=== PATIENT | female | born 1980 | race Caucasian/White ===

== ENCOUNTER 2022-10-17 14:31 | Emergency (ER) | payer BC, SELFPAY ==
[2022-10-17] VITALS (23 sets, daily range): BP systolic 86–110; BP diastolic 51–68; PULSE 59–78; RESP 12–19; TEMP 36.5; O2SAT 99–100
--- NOTE | 2022-10-17 14:53 | W.ED.GENAD ---
Discharge Plan Disposition Patient Disposition: Home Condition: Stable Discharge Details Clinical Impression: Blunt chest trauma, Rib contusion, Blunt trauma of multiple sites of trunk, Blunt head trauma Primary Care Provider: Unknown,Unknown ED Provider: Fabrizio Garrison Home Meds and New Rx's Prescriptions: Continued fluoxetine 10 mg Tablet 10 mg PO 1XD multivitamin Tablet 1 tab PO 1XD Discharge Instructions Instructions: Rib Contusion (ED) Additional Instructions: Your pictures did not show concerning findings for trauma related reasons. You did have an area of inflammation in the right middle lung. When you follow up with your primary care provider you should make them aware of this as you may need a follow up xray or cat scan in a few months if you feel more ill, have severe worsening pain or difficulty breathing return to the emergency department Medical Decision Making 42 yo female with no chronic medical problems comes in with her with left sided chest and abdomen pain s/p fall. Patient was walking outside when she tripped on a stick and landed on her left side on a rock. She denies loc but has felt dizzy since falling. She localizes the pain to the mid axillary line over the 5-7 ribs and has no crepitus. She is caox4, moving all extremities. E[place]lier she complained of left shoulder pain but has none now and no tenderness with full rom of the shoulder. She has tenderness in the luq without guarding, is noted to be hypotensive with bp 86/51 but no tachycardia. Given location of pain and her dizziness will proceed with ct head/cspine, chest/abd/pelvis. labs unremarkable, imaging also without acute findings though does have infiltrates on the right side but denies any cough or fevers and no smoking history, likely incidental finding that she was informed of and will need f/u imaging. She has no pain elsewhere, beer still runner compounder in the left lateral chest but give no fractures or ptx and no acute findings in the abdomen/pelvis and she's ambulating without assistance with normal gait do not feel she requires hospitalization, she will f/u with pcp and return precautions given Differential Diagnosis Differential Diagnosis: splenic injury, rib fracture, tbi Imaging Data Radiologic Study: Attestation: I personally reviewed and interpreted this imaging study as follows: Imaging: CT Scan Radiologist's impression: no acute findings head/c spine Radiologic Study #2: Attestation: I personally reviewed and interpreted this imaging study as follows: Imaging: CT Scan Radiologist's impression: IMPRESSION: 1. There is an area of infiltrate in the medial segment of the right middle lobe as described above.? No other pulmonary findings.? No pleural effusions.? No pneumothorax.? No fractures evident. 2. No significant trauma sequelae in the abdomen and pelvis. 3. No fractures evident Lab Data Lab results reviewed: Yes I reviewed the patient's lab results. HPI General Mode of arrival: wheelchair. Date/Time Provider Initiated Documentation: 10/17/22 14:43. Information obtained by: patient and family. History of Present Illness 42 year old F presents to the emergency department with the chief complaint of left sided chest and abdominal pain s/p fall, described as moderate, Patient started experiencing this minute(s) (30) and it has been constant. No relieving factors improve symptom(s), No exacerbating factors reported . Patient notes denies fever/chills and shortness of breath. Patient did receive the following treatments prior to arrival, none Related Data Home Medications Medication Instructions Recorded Confirmed fluoxetine 10 mg tablet 10 mg PO 1XD 10/17/22 10/17/22 multivitamin 1 tab PO 1XD 10/17/22 10/17/22 Allergies Allergy/AdvReac Type Severity Reaction Status Date / Time morphine Allergy Intermediate Itching Unverified 10/17/22 15:43 General Stated Complaint: Chest/Rib ITA: 3 Review of Systems All systems reviewed & are unremarkable except as noted in HPI and below Constitutional Constitutional: Denies chills and Denies fever(s) Cardiovascular Cardiovascular: Reports chest pain and Denies dyspnea Respiratory Respiratory: Denies cough and Denies dyspnea Gastrointestinal Gastrointestinal: Reports abdominal pain, Denies nausea and Denies vomiting Integumentary/Breasts Skin/Breast: Denies rash PFSH All Active Problems (Updated 10/17/22 @ 18:28 by Fabrizio Garrison MD) Blunt chest trauma (Acute) Rib contusion (Acute) Blunt trauma of multiple sites of trunk (Acute) Blunt head trauma (Acute) Social History Smoking risk assessment performed?: No Exam Const General: no acute distress Orientation: alert HENMT Head: normal to inspection Ears: external ears normal General nose exam: external nose normal Mouth: moist mucous membranes Eyes General: appearance normal, both eyes and all related structures Neck Neck: normal visual inspection and nontender Chest Chest: no crepitus Resp Effort & Inspection: normal respiratory effort and able to speak in complete sentences Auscultation: clear to auscultation bilaterally Cardio Jugular venous pressure: no JVD Rate: regular rate Heart Sounds: no murmurs GI Palpation: soft and tender Skin General skin exam: no rashes or lesions noted Neuro General: patient alert and patient oriented x3 Extrem General: normal to inspection Course Vital Signs Vital signs: Vital Signs Temperature 36.5 C 10/17/22 14:36 Pulse 62 10/17/22 14:36 Respiratory Rate 16 10/17/22 14:36 Blood Pressure 86/51 L 10/17/22 14:36 Pulse Oximetry 99 10/17/22 14:36 Temperature 36.5 C 10/17/22 14:36 Temperature Source Oral 10/17/22 14:36 Pulse 62 10/17/22 14:36 Respiratory Rate 16 10/17/22 14:36 Blood Pressure 86/51 L 10/17/22 14:36 Blood Pressure Position Sitting 10/17/22 14:36 Pulse Oximetry 99 10/17/22 14:36 Oxygen Delivery Method Room Air 10/17/22 14:36 Oxygen Flow Rate 0 10/17/22 14:36 Pain Level 8 10/17/22 14:36
--- NOTE | 2022-10-17 15:07 | DI.CT_ITS ---
Exam(s) CT THORACIC LUMBAR SPINE REC EXAM: CT CHEST PE ABD PELVIS W CLINICAL HISTORY: left sided chest and abdominal pain s/p fall. TECHNIQUE: Imaging Protocol: Axial CT angiography was performed with multi-slice acquisition and m ulti-planar and/or 3D reconstructions. CONTRAST MATERIAL: Intravenous: Omnipaque 350 Contrast volume:100 ml Oral: None COMPARISON: No exams were available for comparison FINDINGS: CHEST: LUNGS: There are no focal findings of significance in the left lung. In the right lung there is foca l infiltrate in the medial segment of the right middle lobe measuring approximately 2 by 2.4 cm. No pneumothorax. No pleural effusions. No significant findings in the trachea and mainstem bronchi.. MEDIASTINUM: There is no evidence of sternal fracture nor mediastinal hematoma. No incidental hilar nor mediastinal adenopathy. CARDIAC: Heart size is normal. There is no pericardial effusion. There is no significant shift of t he interventricular septum.Thoracic aorta is intact. No dissection. OSSEOUS: No fractures evident. No incidental osseous lesions.. ABDOMEN: Suboptimal mild of contrast in the abdomen. Probably related to technical difficulties during the ex amination. There is no ascites. No obvious bowel wall nor mesenteric hematoma. LIVER: No obvious hepatic laceration nor incidental focal hepatic lesions. GALLBLADDER/BILIARY: No obvious gallbladder pathology. CBD is not dilated. PANCREAS: No evidence of pancreatic mass nor dilatation of the pancreatic duct. SPLEEN: Spleen size normal. No splenic lacerations evident on this non few study. No perisplenic fl uid. ADRENALS: There are no significant adrenal masses. KIDNEYS:No obvious kidney lacerations. No calculi nor hydronephrosis. No solid renal masses. ABDOMINAL AORTA: Appears intact and also no evidence of aneurysm. LYMPH NODES: There is no retroperitoneal or para-aortic adenopathy. ABDOMINAL WALL/GI: No evidence of significant anterior abdominal wall hernia. No bowel obstruction. PELVIS: LYMPH NODES: There is no intrapelvic nor inguinal adenopathy. GI: No evidence of appendicitis.No evidence of sigmoid diverticulitis. URINARY BLADDER: Intact. Not distended. REPRODUCTIVE: Uterus and adnexal regions appear unremarkable. OSSEOUS: No fractures. No osseous lesions IMPRESSION: 1. There is an area of infiltrate in the medial segment of the right middle lobe as described above. No other pulmonary findings. No pleural effusions. No pneumothorax. No fractures evident. 2. No significant trauma sequelae in the abdomen and pelvis. 3. No fractures evident Report called by myself to ER physician. RADIATION DOSE DELIVERED: Total DLP DATA REPOSITORY: All CT scans at this facility are submitted to the National Radiology Data Registry (NRDR) Dose Index Registry (DIR) with the [employer] (A[employer]). RADIATION OPTIMIZATION: All CT scans at this facility use at least one of these dose optimization te chniques: automated exposure control; mA and/or kV adjustment per patient size (includes targeted exa ms where dose is matched to clinical indication); or iterative reconstruction.
[2022-10-17 15:12] LABS: Abs Immature Grans 0.04 10^3/uL (0.0-0.06); Absolute Basophil Count 0.03 10^3/uL (0.0-0.2); Absolute Eosinophil Count 0.27 10^3/uL (0.0-0.7); Absolute Lymphocyte Count 2.01 10^3/uL (1.2-3.4); Absolute Monocyte Count 0.34 10^3/uL (0.1-0.8); Absolute Neutrophil Count 4.22 10^3/uL (1.2-6.7); Basophils % 0.4; Eosinophils % 3.9; HCT 39.2 % (36.0-46.0); HGB 12.8 g/dL (11.2-15.7); Immature Grans % 0.6; Lymphocytes % 29.1; MCH 29.3 pg (27.0-33.0); MCHC 32.7 % (32.0-36.0); MCV 90 fL (80-95); MPV 8.7 fL (8.0-11.0); Monocytes % 4.9; Neutrophils % 61.1; Platelet Count 353 10^3/uL (130-400); RBC 4.37 10^6/uL (3.93-5.22); RDW-SD 39.5 fL; WBC 6.91 10^3/uL (4.4-10.8)
[2022-10-17] MEDS: Normal Saline - Diluent 50 ML VIAL IJ (15:21)
[2022-10-17] MEDS: Omnipaque 350 MG/ML 100 ML BTL IJ (15:21)
[2022-10-17 15:26] LABS: PTT Activated 22.1 sec (21.5-31.9); Prothrombin Time 10.4 sec (9.3-11.0)
[2022-10-17 15:28] LABS: ALT 31 U/L (14-59); AST 22 U/L (15-37); Albumin 3.8 g/dL (3.4-5.0); Alkaline Phosphatase 80 U/L (46-116); Anion Gap 5.6 mmol/L (3-11); BUN 16 mg/dL (7-18); Bilirubin, Total 0.4 mg/dL (0.2-1.0); CO2 29.4 mmol/L (21.0-32.0); CREATININE 1.1 mg/dL (0.55-1.02); Calcium 8.6 mg/dL (8.5-10.1); Chloride 102 mmol/L (98-107); Estimated GFR 64.34 (mL/min/1.73m2); Glucose 111 mg/dL (74-106); Lipase 44 U/L (16-77); Magnesium 1.8 mg/dL (1.8-2.4); Potassium 3.6 mmol/L (3.5-5.1); Sodium 137 mmol/L (136-145); Total Protein 8.1 g/dL (6.4-8.2)
[2022-10-17] MEDS: Normal Saline 1,000 ML 1000 ML IV (15:41)
--- NOTE | 2022-10-17 15:46 | DI.VRAD_ITS ---
PROCEDURE INFORMATION: Exam: CT Head Without Contrast Exam date and time: 10/17/2022 3:11 PM Age: 42 years old Clinical indication: Other: Fall confusion TECHNIQUE: Imaging protocol: Computed tomography of the head without contrast. COMPARISON: No relevant prior studies available. FINDINGS: Brain: Normal. No hemorrhage. Unremarkable white matter. No mass effect. Cerebral ventricles: No ventriculomegaly. Paranasal sinuses: Opacities in the maxillary sinuses and ethmoid sinuses and right sphenoid sinus may represent sinusitis. Mastoid air cells: Visualized mastoid air cells are well aerated. Bones/joints: Unremarkable. No acute fracture. Soft tissues: Unremarkable. IMPRESSION: Opacities in the maxillary sinuses and ethmoid sinuses and right sphenoid sinus may represent sinusitis. No acute intracranial hemorrhage PROCEDURE INFORMATION: Exam: CT Cervical Spine Without Contrast Exam date and time: 10/17/2022 3:11 PM Age: 42 years old Clinical indication: Other: Fall confusion TECHNIQUE: Imaging protocol: Computed tomography of the cervical spine without contrast. COMPARISON: No relevant prior studies available. FINDINGS: Bones/joints: No acute fracture. Normal alignment. No significant disc bulge or herniation. No severe spinal canal stenosis. No significant neural foraminal narrowing. Lungs: Lung apices are normal. Soft tissues: Unremarkable. IMPRESSION: No acute findings. Dictated and Authenticated by: Re Salas MD. Ordering:STEFAN Dinh MD
[2022-10-17 16:16] LABS: ETHANOL BLOOD < 3.0 mg/dL (<10)
== END 2022-10-17 17:21 | disposition home or self-care (01) ==
PROVIDERS: Emergency Provider Emergency Medicine
DX: S29.9XXA Unspecified injury of thorax, initial encounter (principal); S30.1XXA Contusion of abdominal wall, initial encounter; S09.90XA Unspecified injury of head, initial encounter; W01.198A Fall on same level from slipping, tripping and stumbling with subsequent striking against other object, initial encounter
CPT/HCPCS: 71275; 74177; 80053; 80307; 83690; 86850; 86900; 86901; 96361; 96374; 99285; 70450; 72125; 80320; 83735; 85025; 85610; 85730; 99284; J0131; J3490

== ENCOUNTER 2024-06-02 00:18 | Outpatient (CLI) | payer BC, SELFPAY ==
--- NOTE | 2024-06-02 | DI.RAD_ITS ---
Exam(s) XR LUMBAR SPINE COMPLETE EXAM: XR LUMBAR SPINE COMPLETE CLINICAL HISTORY: LBP not responding to conservative care, ? DJD vs spondylolisthesis. TECHNIQUE: 2D digital imaging was performed. COMPARISON: CT CT THORACIC LUMBAR SPINE REC from 10/17/2022 FINDINGS: Five views. No evidence of fracture or listhesis nor pars interarticularis defects. There is mild disc space narrowing at L5-S1 level again noted. There is also 3 mild disc space narro wing at L1-2 level and mild anterior osseous lipping at this level. Other disc spaces exhibit normal height. There is a mild scoliosis convex right, possibly positional. This was not evident on a CT scan of September 2022. Sacroiliac joints appear un remarkable. Facet joints appear unremarkable. Bone density normal. No osseous lesions. There is no IUD in the pelvis noted IMPRESSION: There is some disc space narrowing at L1-2 and L5-S1 levels. If clinically indicated follow-up MRI c an be performed for added sensitivity and specificity. DATA REPOSITORY: RADIATION DOSE DELIVERED:
== END 2024-06-02 00:38 ==
PROVIDERS: PCP Family Medicine; Visit Provider Chiropractor
DX: M51.379 Other intervertebral disc degeneration, lumbosacral region without mention of lumbar back pain or lower extremity pain (principal)
CPT/HCPCS: 72110